=== PATIENT | female | born 1965 | race African-American/Black ===

== ENCOUNTER 2017-05-17 14:14 | Emergency (ER) | payer MEDICAID ==
[~2017-05-17] VITALS: Ht 152.4 cm; Wt 81.6 kg
[~2017-05-17 14:14] MED LIST: CYCLOBENZAPRINE10 MG ORAL; IBUPROFEN600 MG ORAL; METFORMIN HCL1000 M1 ORAL; NORCO 5-325 TA1 EACH ORAL; VALIUM5 MG ORAL
[2017-05-17 14:44] VITALS: BP 143/74
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
[2017-05-17] MEDS ORDERED: TYLENOL EXTRA500 MG ORAL (16:29)
[2017-05-17] MEDS ORDERED: CYCLOBENZAPRINE10 MG ORAL (16:29)
[2017-05-17] MEDS ORDERED: IBUPROFEN600 MG ORAL (16:29)
--- NOTE | 2017-05-17 16:33 | Diagnostic Imaging Report ---
Indication: PAIN Technique: 3 views right hand Comparison: none Findings: No acute fractures. No dislocations. Joint spaces are preserved. Impression: Negative
[2017-05-17 16:35] VITALS: BP 130/72
== END 2017-05-17 16:35 | disposition home or self-care (01) ==
LOC: EMR 15:10
DX: S63.601A Unspecified sprain of right thumb, initial encounter (principal); S39.012A Strain of muscle, fascia and tendon of lower back, initial encounter; V43.52XA Car driver injured in collision with other type car in traffic accident, initial encounter; Y92.410 Unspecified street and highway as the place of occurrence of the external cause; M54.9 Dorsalgia, unspecified; G89.29 Other chronic pain; E11.9 Type 2 diabetes mellitus without complications
CPT/HCPCS: 99284

== ENCOUNTER 2017-09-13 00:09 | Emergency (ER) | payer MEDICAID ==
[~2017-09-13] VITALS: Ht 152.4 cm; Wt 80.7 kg
[~2017-09-13 00:09] MED LIST changes: +TYLENOL EXTRA500 MG ORAL
--- NOTE | 2017-09-13 00:43 | Emergency Room Report ---
History of Present Illness General Chief Complaint: Lower Extremity Injury Source: Patient, Medical Record Present Illness HPI Is a 52-year-old female with no significant past medical history. She presents with chief complaint of right ankle pain. Onset was acute and occurred 3 days ago. She was wearing heels and was getting out of the truck and twisted her ankle. Since his been throbbing and painful. Her thigh area. No loss of consciousness. Pain is 9/10. Denies any other complaint. No other injury. Worse with walking. Allergies: Coded Allergies: No Known Allergies (Unverified , 03/17/14) Patient History Past Medical History: see triage record, old chart reviewed Past Surgical History: other Pertinent Family History: none Social History: Denies: smoking Now: No Immunizations: other Reviewed Nursing Documentation: PMH: Agreed, PSxH: Agreed Nursing Documentation-PMH Hx Diabetes: Yes Review of Systems Eye: Denies: eye pain, blurred vision ENT: Denies: ear pain, nose congestion, throat swelling Respiratory: Denies: cough, shortness of breath Cardiovascular: Denies: chest pain, palpitations Gastrointestinal: Denies: abdominal pain, diarrhea, nausea, vomiting Musculoskeletal: Reports: joint pain, Denies: back pain Skin: Denies: rash Neurological: Denies: headache, numbness Endocrine: Denies: increased thirst, increased urine Hematologic/Lymphatic: Denies: easy bruising All Other Systems: negative except mentioned in HPI Physical Exam Vital Signs Date Time Temp Pulse Resp B/P (MAP) Pulse Ox O2 Delivery O2 Flow Rate FiO2 09/13/17 00:27 97.3 90 16 135/80 96 Room Air 97.3 vitals unremarkable Sp02 EP Interpretation: reviewed, normal General Appearance: well appearing, no apparent distress, alert Head: normocephalic, atraumatic Eyes: bilateral eye PERRL, bilateral eye EOMI ENT: hearing grossly normal, normal pharynx Neck: full range of motion, supple, no meningismus Respiratory: chest non-tender, lungs clear, normal breath sounds Cardiovascular #1: regular rate, rhythm, no murmur Gastrointestinal: normal bowel sounds, non tender, no mass, no organomegaly, no bruit, non-distended Musculoskeletal: back normal, gait/station normal, normal range of motion, other - Right ankle: There is tenderness to just inferior of the lateral malleolus. Mild edema. Ankle stable. Pulses normal. Neurologic: alert, oriented x3 Psychiatric: mood/affect normal Skin: warm/dry Procedures Splinting Splinting : Consent: Verbal Location: right ankle Pre-Made Type: aircast Pre-Proc Neuro Vasc Exam: normal Post-Proc Neuro Vasc Exam: normal Patient Tolerated: Well Complications: None Medical Decision Making Diagnostic Impression: Primary Impression: Sprain of ankle, right Qualified Codes: S93.411A - Sprain of calcaneofibular ligament of right ankle , initial encounter ER Course Patient with a right ankle sprain. No fracture dislocation. We'll discharge home. Other X-Ray Diagnostic Results Other X-Ray Diagnostic Results : X-Ray ordered: Right ankle x-rays # of Views/Limited Vs Complete: 3 View Indication: Pain EP Interpretation: Yes Interpretation: no dislocation, no soft tissue swelling, no fractures Impression: No acute disease Electronically Signed by: Mp Harrell MD Last Vital Signs Date Time Temp Pulse Resp B/P (MAP) Pulse Ox O2 Delivery O2 Flow Rate FiO2 09/13/17 00:27 97.3 90 16 135/80 96 Room Air 97.3 Status: improved Disposition: HOME, SELF-CARE Condition: Stable Scripts Hydrocodone/Acetaminophen 5-325* (HYDROCODONE/ACETAMINOPHEN 5-325*) 1 Each Tablet 1 TAB ORAL Q6H Y for For Pain, #10 TAB 0 Refills Prov: MP HARRELL M.D. 09/13/17 Ibuprofen* (MOTRIN*) 600 Mg Tablet 600 MG ORAL THREE TIMES A DAY, #30 TAB 0 Refills Prov: MP HARRELL M.D. 09/13/17 Patient Instructions: Ankle Sprain Additional Instructions: Rest. Elevate your legs. Ice pack to the area. Use crutches as needed. Return if symptom worsen. Followup with your DrRoman in 7 days. MP HARRELL M.D. Sep 13, 2017 00:43
[2017-09-13] MEDS ORDERED: Norco 5mg/325mg tab ORAL ONE (00:45)
[2017-09-13] MEDS ORDERED: IBUPROFEN600 MG ORAL (01:04)
[2017-09-13] MEDS ORDERED: HYDROCODON-ACE1 EA15 ORAL (01:04)
[2017-09-13 01:13] VITALS: BP 135/80
--- NOTE | 2017-09-13 11:42 | Diagnostic Imaging Report ---
Indication: Pain right ankle Comparison: None Findings: 3 views of the right ankle obtained. No acute fracture, malalignment, periostitis, or osteochondral defects are identified. Soft tissues are unremarkable. Impression: Negative examination
== END 2017-09-13 01:13 | disposition home or self-care (01) ==
LOC: EMR 01:00
DX: S93.401A Sprain of unspecified ligament of right ankle, initial encounter (principal); X50.1XXA Overexertion from prolonged static or awkward postures, initial encounter; Y92.9 Unspecified place or not applicable; E11.9 Type 2 diabetes mellitus without complications
CPT/HCPCS: 99283

== ENCOUNTER 2018-04-07 15:04 | Emergency (ER) | payer MEDICAID ==
[~2018-04-07] VITALS: Ht 152.4 cm; Wt 81.6 kg
[~2018-04-07 15:04] MED LIST changes: +HYDROCODON-ACE1 EA15 ORAL
[2018-04-07 15:10] VITALS: BP 118/69
[2018-04-07] MEDS ORDERED: DiphenhydrAMINE 25mg/10ml Elixir ONE (15:16)
[2018-04-07] MEDS ORDERED: Norco 5mg/325mg tab ORAL ONE (17:00)
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
[2018-04-07] MEDS ORDERED: IBUPROFEN600 MG ORAL (17:05)
[2018-04-07 17:21] VITALS: BP 127/78
--- NOTE | 2018-04-07 17:24 | Diagnostic Imaging Report ---
EXAM: XR Left Hip With Pelvis When Performed, 1 View CLINICAL HISTORY: PAIN TECHNIQUE: Frontal view of the left hip, with pelvis when performed. COMPARISON: No relevant prior studies available. FINDINGS: Bones/joints: Unremarkable. No acute fracture. No dislocation. Joint space well-maintained. Soft tissues: Unremarkable. Other findings: Large calcifications in the pelvis, largest 5.6 cm may be calcified uterine fibroids. IMPRESSION: 1. No fracture or malalignment. 2. Large calcifications in the pelvis, largest 5.6 cm may be calcified uterine fibroids.
--- NOTE | 2018-04-07 17:33 | Diagnostic Imaging Report ---
EXAM: XR Left Shoulder Complete, 2 or More Views CLINICAL HISTORY: PAIN TECHNIQUE: Two or more views of the left shoulder. COMPARISON: No relevant prior studies available. FINDINGS: Bones/joints: Unremarkable. No acute fracture. No dislocation. Soft tissues: Unremarkable. IMPRESSION: Normal left shoulder x-rays.
== END 2018-04-07 17:24 | disposition home or self-care (01) ==
LOC: EMR 15:40
DX: S40.012A Contusion of left shoulder, initial encounter (principal); S70.01XA Contusion of right hip, initial encounter; Y04.0XXA Assault by unarmed brawl or fight, initial encounter; Y92.89 Other specified places as the place of occurrence of the external cause; Y99.8 Other external cause status; E11.9 Type 2 diabetes mellitus without complications
CPT/HCPCS: 73502; 99284

== ENCOUNTER 2018-09-16 16:52 | Emergency (ER) | payer MEDICAID ==
[~2018-09-16] VITALS: Ht 152.4 cm; Wt 79.8 kg
[2018-09-16 17:08] VITALS: BP 126/54
--- NOTE | 2018-09-16 17:11 | Emergency Room Report ---
History of Present Illness General Chief Complaint: Eye Problems Source: Medical Record Present Illness HPI Patient is a 53 old female presenting for left eye redness for 1 day. She also noticed some crusting and discharge from the left eye. She denies any known sick contacts. She denies any change in vision. She is also complaining of right-sided neck pain for one week. Worse with head movement. Described as a 7 out of 10 dull ache. Does not radiate. She denies injury to the neck. She states pain is better after massage. She denies any other symptoms including nausea, vomiting, fever, chills, blurred vision, headache Allergies: Coded Allergies: No Known Allergies (Unverified , 04/07/18) Patient History Past Medical History: see triage record Pertinent Family History: none Last Menstrual Period: 6 months ago Reviewed Nursing Documentation: PMH: Agreed; PSxH: Agreed Nursing Documentation-PMH Past Medical History: No History, Except For Hx Diabetes: Yes Review of Systems All Other Systems: negative except mentioned in HPI Physical Exam Vital Signs Date Time Temp Pulse Resp B/P (MAP) Pulse Ox O2 Delivery O2 Flow Rate FiO2 09/16/18 16:58 98.2 102 18 126/54 99 Room Air Sp02 EP Interpretation: reviewed, normal General Appearance: no apparent distress, alert, GCS 15, non-toxic Head: normocephalic, atraumatic Eyes: left eye Scleral Injection, left eye other - L eye crusting; bilateral eye PERRL, bilateral eye EOMI ENT: hearing grossly normal, normal pharynx, no angioedema, normal voice Neck: full range of motion, supple/symm/no masses Respiratory: chest non-tender, lungs clear, normal breath sounds, speaking full sentences Musculoskeletal: back normal, gait/station normal, normal range of motion, non- tender Neurologic: alert, oriented x3, responsive, motor strength/tone normal, sensory intact, speech normal Psychiatric: judgement/insight normal, memory normal, mood/affect normal, no suicidal/homicidal ideation Skin: normal color, no rash, warm/dry, well hydrated Medical Decision Making PA Attestation Dr. Martinez is my supervising physician. Patient management was discussed with my supervising physician Diagnostic Impression: Primary Impression: Neck muscle strain Qualified Codes: S16.1XXA - Strain of muscle, fascia and tendon at neck level , initial encounter Additional Impression: Conjunctivitis Qualified Codes: H10.32 - Unspecified acute conjunctivitis, left eye ER Course Patient is a 53 old female presenting for left eye redness for 1 day. Differential diagnoses considered but not limited to allergic conjunctivitis, bacterial conjunctivitis, viral conjunctivitis, blepharitis, hordeolum Ddx considered include but not limited to sprain/strain, fracture, contusion Physical exam: Vitals within normal limits. No apparent distress HEENT: There is left eye injection with yellow discharge/crusting. No eyelid edema. EOMI. PERRL TTP over the R cervical paraspinal muscles. Otherwise exam is unremarkable The patient will be discharged home with a prescription for ofloxacin drops, muscle relaxer, and will follow up with PMD. ER precautions are given Last Vital Signs Date Time Temp Pulse Resp B/P (MAP) Pulse Ox O2 Delivery O2 Flow Rate FiO2 09/16/18 16:58 98.2 102 18 126/54 99 Room Air Status: improved Disposition: HOME, SELF-CARE Condition: Improved Scripts Ofloxacin (OFLOXACIN) 5 Ml Drops 2 DROP OPHTHALM Q6HR, #5 ML Prov: TALAT REAVES P.A. 09/16/18 Methocarbamol* (ROBAXIN-750*) 750 Mg Tablet 750 MG PO TID, #21 TAB 0 Refills Prov: TALAT REAVES P.A. 09/16/18 Ibuprofen* (MOTRIN*) 600 Mg Tablet 600 MG ORAL Q8H PRN for For Pain, #30 TAB 0 Refills Prov: TALAT REAVES P.A. 09/16/18 TALAT REAVES Sep 16, 2018 17:11
--- NOTE | 2018-09-16 17:13 | NUR ---
ED Nurse Note: Pt came in due to left eye pain x couple of days and left shoulder pain started today. Denies any injury.
[2018-09-16] MEDS ORDERED: OFLOXACIN5 ML OPHTHALM (17:17)
[2018-09-16] MEDS ORDERED: IBUPROFEN600 MG ORAL (17:17)
[2018-09-16] MEDS ORDERED: ROBAXIN-750750 MG PO (17:17)
[2018-09-16 17:27] VITALS: BP 126/54
--- NOTE | 2018-09-16 17:27 | NUR ---
ED Nurse Note: Pt is cleared by Health Care Provider for discharge. DC instructions/prescription was given and explained to pt and verbalized understanding of teachings given. All medical devices such as ID band removed. Pt AAO x4, ambulatory and left with all personal belongings.
== END 2018-09-16 17:27 | disposition home or self-care (01) ==
LOC: EMR 17:20
DX: H10.9 Unspecified conjunctivitis (principal); S16.1XXA Strain of muscle, fascia and tendon at neck level, initial encounter; X58.XXXA Exposure to other specified factors, initial encounter; Y92.9 Unspecified place or not applicable; E11.9 Type 2 diabetes mellitus without complications
CPT/HCPCS: 99282

== ENCOUNTER 2019-11-16 02:29 | Emergency (ER) | payer MEDICAID ==
[~2019-11-16] VITALS: Ht 152.4 cm; Wt 77.1 kg
[~2019-11-16 02:29] MED LIST changes: +OFLOXACIN5 ML OPHTHALM; +ROBAXIN-750750 MG PO
[2019-11-16 02:50] VITALS: BP 136/71
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
[2019-11-16] MEDS ORDERED: Methocarbamol 750mg tab ORAL ONE (03:00)
[2019-11-16] MEDS ORDERED: LIDODERM700 M1 TOPIC (03:25)
[2019-11-16] MEDS ORDERED: ROBAXIN-750750 MG PO (03:25)
[2019-11-16] MEDS ORDERED: IBUPROFEN600 M1 ORAL (03:25)
[2019-11-16 03:30] VITALS: BP 135/85
--- NOTE | 2019-11-16 03:30 | NUR ---
ER DISCHARGE NOTE: Patient is cleared to be discharged per ERMD, pt is aox4, on room air, with stable vital signs. pt was given dc and prescription instructions, pt was able to verbalize understanding, pt id band removed. pt is able to ambulate with steady gait. pt took all belongings.
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
== END 2019-11-16 03:30 | disposition home or self-care (01) ==
LOC: EMR 02:54
DX: M54.2 Cervicalgia (principal); M54.9 Dorsalgia, unspecified; E11.9 Type 2 diabetes mellitus without complications; V43.52XA Car driver injured in collision with other type car in traffic accident, initial encounter; Y92.410 Unspecified street and highway as the place of occurrence of the external cause
CPT/HCPCS: 99282